=== PATIENT | male | born 1975 | race Caucasian/White ===

== ENCOUNTER 2022-10-07 10:03 | Outpatient (CLI) | payer BC, SELFPAY ==
--- NOTE | 2022-10-07 10:20 | XR_ITS ---
WS: [id number] XR knee LT 3V* [id number] REASON FOR EXAM: acute left knee pain FINDINGS: No fracture or focal bone lesion. Medial, lateral, and patellofemoral joint spaces are intact and well preserved. No soft tissue abnormality. XR/XR knee LT 3V* [id number] IMPRESSION: No significant abnormality.
== END 2022-10-07 10:04 | disposition home or self-care (01) ==
PROVIDERS: PCP Family Medicine; Visit Provider Family Medicine
DX: M25.562 Pain in left knee (principal)
CPT/HCPCS: 73562

== ENCOUNTER → 2023-01-06 08:29 | Outpatient (BNVA) | payer BC, SELFPAY | PROVIDERS: PCP Family Medicine; Visit Provider Family Medicine | DX: I10 Essential (primary) hypertension (principal) | CPT/HCPCS: 80053; 80061; 82043; 85025 ==

== ENCOUNTER → 2023-02-07 09:47 | Outpatient (BNVA) | payer BC, SELFPAY | PROVIDERS: PCP Family Medicine; Visit Provider Family Medicine | DX: I10 Essential (primary) hypertension (principal) | CPT/HCPCS: 80048 ==

== ENCOUNTER 2023-06-10 19:49 | Emergency (ER) | payer BC, SELFPAY ==
[2023-06-10 20:07] VITALS: BP 152/104; PULSE 63; RESP 18; TEMP 37.1; O2SAT 94; BMI 44.4
--- NOTE | 2023-06-10 20:50 | W.ED.ANIMALB ---
HPI - Animal Bite General: Chief Complaint: Animal Bite Stated Complaint: dog bite, face lac Time Seen by Provider: 06/10/23 20:32 History of Present Illness: Patient is a 47-year-old male who presents to the emergency department for evaluation of a dog bite to the left side of his face. Patient reports that earlier this evening a dog that he is taking care of bit the left side of his face. Patient states that he is not up-to-date on his tetanus prophylaxis. Admits to a mild amount of bleeding and onset of injury that has since been controlled with compression. He denies any numbness or tingling to the affected area. Patient reports that the dog is up-to-date on its rabies vaccinations and he is not concerned for rabies at this time. He denies any numbness or tingling to the affected area. No other complaints at this time. Associated symptoms: Deny chills, fever(s) or headache(s) Review of Systems General: Reports: 10 or more systems reviewed and unremarkable except in HPI and below Const: Denies: fever(s) or chills Eyes: Denies: change in vision or blurry vision ENMT: Denies: throat pain, ear or mastoid pain or ear discharge Card: Denies: chest pain or palpitations Resp: Denies: dyspnea, productive cough, non-productive cough or wheezing GI: Denies: abdominal pain, nausea, vomiting, diarrhea or constipation : Denies: dysuria or hematuria Musc: Denies: neck pain or back pain Skin/Breast: Reports: new lesions (Admits to a dog bite to the left side of his face); Denies: rash Neuro: Denies: headache(s), numbness in extremities, dizziness or vertigo PFS ED PFSH: Medical History Anxiety Hypertension Surgical History History of arthroscopic surgery of shoulder Right - rotator cuff. 2020 History of umbilical hernia repair Status post open reduction and internal fixation (ORIF) of fracture left tib/fib - December 2009 Family History Father Hypertension Grandfather Cancer lung - smoker Mother Hypertension Cancer uteran Social History Smoking and tobacco/nicotine status: never used tobacco/nicotine Second hand smoke exposure: No Substance/Drug Use: never Physical Exam Const: COMMON NORMALS: no acute distress, patient oriented x3 and alert HENMT: HEAD IMAGES: 1. 2. OTHER: 2 shallow lacerations are noted to the patient's left cheek. 1 laceration measures approximately 2 cm and the other measures approximately 1 cm. The lacerations are shallow and the entire wound can be visualized. Bleeding currently controlled in the emergency department. Eye: COMMON NORMALS: Equal, round and reactive pupils present and EOMs intact bilaterally PUPIL: Yes Equal, round and reactive pupils present Neck/C-Spine: COMMON NORMALS: full ROM, no lymphadenopathy and supple Chest: COMMONS NORMALS: normal inspection of the chest Resp: COMMON NORMALS: normal respiratory effort, No retractions and No use of accessory muscles Cardio: COMMON NORMALS: regular rate and Peripheral pulses 2+ throughout RATE: regular rate PERIPHERAL PULSES: Peripheral pulses 2+ throughout Extremity: OTHER: Moving bilateral upper and lower extremities without weakness or deficit. Neuro: COMMON NORMALS: patient oriented x3 SENSORIUM/ORIENTATION: Yes alert Procedures Laceration Laceration 1: Site: face Side (If applicable): left Size (cm): 2 Description: linear Depth: simple, single layer Local Anesthetic: lidocaine 1% Amount of anesthesia used (mL): 10 Pre-repair: wound explored and irrigated extensively Skin layer closed with: nylon Size (cm): 6-0 Number of sutures: 3 Technique: simple, interrupted Laceration 2: Site: face Side (If applicable): left Size (cm): 1 Description: linear Depth: simple, single layer Local Anesthetic: lidocaine 1% Pre-repair: wound explored and irrigated extensively Skin layer closed with: nylon Size (cm): 6-0 Number of sutures: 1 Technique: simple, interrupted Course Vital Signs: Vital signs: Vital Signs Temperature 98.7 F 06/10/23 20:07 Pulse Rate 63 06/10/23 20:07 Respiratory Rate 18 06/10/23 20:07 Blood Pressure 152/104 06/10/23 20:07 Pulse Oximetry 94 06/10/23 20:07 Oxygen Delivery Me thod Room Air 06/10/23 20:07 MDM - Animal Bite Medical Decision Making Patient is a 47-year-old male who presents to the emergency department for evaluation of a dog bite to the left side of his face. On physical examination patient is nontoxic and in no acute distress. Vital signs remained stable throughout the ED course. Patient is neurovascular intact. On exam the laceration showed no evidence of tendon damage, foreign body, or nerve damage. The laceration was closed in the emergency department without any difficulties. Tetanus updated in the emergency department. Patient was instructed over wound care and return to the emergency department if signs of infection should occur. A prescription of Augmentin was sent to the patient's pharmacy be picked up. First dose given in the emergency department. Patient reports the dog is up-to-date on his rabies vaccination and he is not concerned for rabies at this time. Patient stated understanding of all discharge instructions and was agreeable to plan of care. Differential diagnosis includes but is not limited to laceration, abrasion, contusion, dog bite, rabies Lab Data Radiology Impressions Face X-Ray 06/10/23 20:58 IMPRESSION: 1. Metallic foreign body in the right upper molar. 2. No other unexpected radiopaque foreign body. 3. No fracture identified. All radiology interpretation(s) finalized by discharge Discharge Plan Discharge Patient Disposition: Home Clinical Impression: Dog bite of face Condition: Stable Prescriptions: New amoxicillin-pot clavulanate 875-125 mg tablet 1 tab PO BID 10 Days Qty: 20 0RF No Action sertraline 25 mg tablet 50 mg PO DAILY Qty: 90 1RF atorvastatin 40 mg tablet 40 mg PO .qhs Qty: 90 1RF losartan 100 mg tablet 100 mg PO DAILY Qty: 90 1RF chlorthalidone 25 mg tablet 25 mg PO DAILY Qty: 90 1RF amlodipine 5 mg tablet 5 mg PO DAILY Qty: 90 1RF Discharge Orders: Discharge ED (Routine); Ordered 06/10/23 Ordered By: Andrews Calzada Referrals: Olga Gamble DO [Primary Care Provider] - Patient Instructions: Facial Laceration (ED) Activity Restrictions/Additional Instructions: Tylenol and ibuprofen as needed for pain. Wash the area twice daily with soap and water and apply antibiotic ointment. Antibiotic as prescribed. See handout over generalized instructions. Call your primary care provider in approximately 5 days for wound check and suture removal. Return to the emergency department for any rapid or worsening symptoms to include but not limited to redness to the affected area, red streaking, purulent drainage, fever, chills, nausea, vomiting, or as needed Coding Level of Care Code ED [employer] Consultant for Shalonda Meeks
--- NOTE | 2023-06-10 20:58 | XRR_ITS ---
PROCEDURE INFORMATION: Exam: XR Facial Bones, Less Than 3 Views Exam date and time: 06/10/2023 9:11 PM Age: 47 years old Clinical indication: Injury or trauma; Other: Dog bite; Laceration; Jaw; Left; Not specified; Additional info: Evaluate for foreign body post dog bite TECHNIQUE: Imaging protocol: XR of the facial bones, less than 3 views. COMPARISON: No relevant prior studies available. FINDINGS: Sinuses: Well aerated. No opacification. Bones/joints: No fracture identified. Dental: Metallic foreign body in the right upper molar. Soft tissues: No other unexpected radiopaque foreign body. XR/XR facial bones <3V [id number] IMPRESSION: 1. Metallic foreign body in the right upper molar. 2. No other unexpected radiopaque foreign body. 3. No fracture identified.
[2023-06-10] MEDS: tetanus-dipt-pertussis 0.5 mL SDV IM (21:30)
[2023-06-10] MEDS: lidocaine 1% INJ 10 mL (per mL) INJECTION (21:45)
[2023-06-10] MEDS: amoxicillin-clav 875-125 mg Tablet 1 TAB PO (22:21)
[2023-06-10 22:45] VITALS: PULSE 80; RESP 18; O2SAT 99
== END 2023-06-10 22:45 | disposition home or self-care (01) ==
PROVIDERS: Emergency Provider Physician Assistant; PCP Family Medicine
DX: S01.85XA Open bite of other part of head, initial encounter (principal); W54.0XXA Bitten by dog, initial encounter; I10 Essential (primary) hypertension; Z23 Encounter for immunization
CPT/HCPCS: 12013; 70140; 90471; 90715; 99283

== ENCOUNTER → 2023-08-10 12:00 | Outpatient (BNVA) | payer BC, SELFPAY | PROVIDERS: PCP Family Medicine; Visit Provider Nurse Practitioner Family | DX: J06.9 Acute upper respiratory infection, unspecified (principal) | CPT/HCPCS: 87400 ==

== ENCOUNTER → 2023-11-21 15:55 | Outpatient (BNVA) | payer BC, SELFPAY | PROVIDERS: PCP Family Medicine; Visit Provider Family Medicine | DX: Z13.6 Encounter for screening for cardiovascular disorders (principal); E78.5 Hyperlipidemia, unspecified | CPT/HCPCS: 80053; 80061; 85025 ==

== ENCOUNTER 2023-12-22 16:04 | Outpatient (CLI) | payer BC, SELFPAY ==
--- NOTE | 2023-12-22 16:10 | XRR_ITS ---
PROCEDURE INFORMATION: Exam: XR Cervical Spine Exam date and time: 12/22/2023 4:20 PM Age: 48 years old Clinical indication: Radicular pain (radiculopathy); Cervical region; Patient HX: Neck pain x 4 yrs, HX of rotator cuff surgery on RT shoulder, RT arm pain/falling asleep; Additional info: Cervical radiculopathy TECHNIQUE: Imaging protocol: Radiologic exam of the cervical spine. Views: 2 or 3 views. COMPARISON: CR XR facial bones <3V [id number] 06/10/2023 9:11 PM FINDINGS: Bones/joints: No fracture, malalignment or other acute abnormality is seen in the cervical spine. Chronic degenerative changes are present with disc space narrowing, sclerosis and osteophytes from C3-C7. Soft tissues: Unremarkable. XR/XR cervical spine 3V* [id number] IMPRESSION: 1. No acute abnormality. 2. 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
== END 2023-12-22 16:05 | disposition home or self-care (01) ==
LOC: RAD 16:05
PROVIDERS: PCP Family Medicine; Visit Provider Family Medicine
DX: M54.12 Radiculopathy, cervical region (principal)
CPT/HCPCS: 72040

== ENCOUNTER → 2024-11-08 08:31 | Outpatient (BNVA) | payer BC, SELFPAY | PROVIDERS: PCP Family Medicine; Visit Provider Family Medicine | DX: I10 Essential (primary) hypertension (principal); Z68.42 Body mass index [BMI] 45.0-49.9, adult | CPT/HCPCS: 80053; 80061; 83036; 84439; 84443; 85025 ==